=== PATIENT | female | born 1980 | race African-American/Black ===

== ENCOUNTER 2021-07-30 14:08 | Emergency (ER) | payer OTHER ==
[2021-07-30 14:31] VITALS: BP 120/70; PULSE 69; TEMP 98.7; BMI 27.9
[2021-07-30] MEDS ORDERED: SODIUM CHLORIDE 1,000 ML IV STA (16:06)
[2021-07-30 17:20] LABS: HEMATOCRIT 30.6 % (32.4-45.2); HEMOGLOBIN 9.7 GM/dL (10.7-15.3); MCH 21.3 pg (25.7-33.7); MCHC 31.7 g/dl (32.0-36.0); MEAN CELL VOLUME 67.2 fl (80-96); PLATELET COUNT 311 10^3/uL (134-434); RBC 4.55 M/mm3 (3.60-5.2); RDW 20.4 % (11.6-15.6); WHITE BLOOD COUNT 5.4 K/mm3 (4.0-10.0)
[2021-07-30 17:42] LABS: CHLORIDE 109 mmol/L (98-107); SODIUM 139 mmol/L (136-145)
[2021-07-30 17:44] LABS: ALBUMIN 3.5 g/dl (3.4-5.0); ANION GAP 7 MMOL/L (8-16); CALCIUM 8.6 mg/dL (8.5-10.1); CO2 24 mmol/L (21-32); GLUCOSE,RANDOM 77 mg/dL (74-106)
[2021-07-30 17:46] LABS: BLOOD UREA NITROGEN 12.5 mg/dL (7-18)
[2021-07-30 17:47] LABS: SGOT/AST 30 U/L (15-37)
[2021-07-30 17:49] LABS: SGPT/ALT 21 U/L (13-61); TOT PROT 8.2 g/dl (6.4-8.2)
[2021-07-30 17:50] LABS: ALK PHOS 62 U/L (45-117)
[2021-07-30 17:51] LABS: BILIRUBIN,TOTAL 0.2 mg/dL (0.2-1)
== END 2021-07-30 20:02 | disposition home or self-care (01) ==
LOC: JER 14:08
PROC: 3E0337Z Introduction of Electrolytic and Water Balance Substance into Peripheral Vein, Percutaneous Approach (ICD-10-PCS; principal; 2021-07-30)
DX: D64.9 Anemia, unspecified (principal); R42 Dizziness and giddiness
CPT/HCPCS: 36415; 80053; 82550; 82553; 84484; 85027; 93005; 93010; 99284-25

== ENCOUNTER 2024-02-14 12:26 | Day surgery (SDC) | payer OTHER ==
[2024-02-14 12:52] VITALS: BP 107/66; PULSE 76; TEMP 98.6
[2024-02-14] MEDS: FERRIC CARBOXYMALTOSE 750 MG in SODIUM CHLORIDE 250 ML IVPB SCH (12:57)
[2024-02-14 14:08] VITALS: RESP 18
== END 2024-02-14 14:09 | disposition home or self-care (01) ==
LOC: FINFUSION 12:26 → FM/S 12:28 → FINFUSION 14:09
PROVIDERS: ATTEND Family Medicine
PROC: 3E033GC Introduction of Other Therapeutic Substance into Peripheral Vein, Percutaneous Approach (ICD-10-PCS; principal; 2024-02-14)
DX: E61.1 Iron deficiency (principal)
CPT/HCPCS: 81025; 96365; J1439

== ENCOUNTER 2024-02-21 11:59 | Day surgery (SDC) | payer OTHER ==
[2024-02-21] MEDS: FERRIC CARBOXYMALTOSE 750 MG in SODIUM CHLORIDE 250 ML IVPB SCH (13:10)
[2024-02-21 13:59] VITALS: BP 110/72; PULSE 67; RESP 17; TEMP 98.1
== END 2024-02-21 13:20 | disposition home or self-care (01) ==
LOC: FINFUSION 11:59 → FM/S 11:59 → FINFUSION 13:20
PROVIDERS: ATTEND Family Medicine
PROC: 3E033GC Introduction of Other Therapeutic Substance into Peripheral Vein, Percutaneous Approach (ICD-10-PCS; principal; 2024-02-21)
DX: D50.9 Iron deficiency anemia, unspecified (principal)
CPT/HCPCS: 81025; 96365; J1439